=== PATIENT | female | born 1965 | race Caucasian/White ===

== ENCOUNTER 2020-09-10 05:53 | Day surgery (SDC) | payer OTHER ==
[~2020-09-10 05:53] MED LIST: BREO ELLIPTA 11 EACH INH; CHLORTHALIDONE25 MG PO; COZAAR100 MG PO; FLUTICASONE PRO16 GM; K-TAB ER20 MEQ PO; LEVOTHYROXINE75 MC1 PO; MELOXICAM15 MG PO; OMEPRAZOLE40 MG PO; ROSUVASTATIN CAL5 MG PO; TRAMADOL HCL50 MG PO; VENTOLIN HFA IN18 GM INH
[2020-09-10] MEDS ORDERED: ACETAMINOPHEN500 M1 PO (06:21)
[2020-09-10] MEDS ORDERED: SAM-E200 MG PO (06:23)
[2020-09-10] MEDS ORDERED: MAG-OXIDE 400M400 MG PO (06:24)
[2020-09-10] MEDS ORDERED: MSM1000 MG PO (06:24)
[2020-09-10] MEDS ORDERED: GLUCOSAMINE-CH1 EA14 PO (06:25)
[2020-09-10 07:56] LABS: BUN/CREAT RATIO (CALC) 34.8 RATIO; CREATININE 0.66 mg/dL (0.51-0.95); POTASSIUM 3.7 mmol/L (3.5-5.1)
[2020-09-10] MEDS ORDERED: XARELTO10 MG PO (13:08)
== END 2020-09-10 17:00 | disposition home or self-care (01) ==
LOC: FAS 05:53
PROVIDERS: Nurse Practitioner Adult Health
DX: M16.11 Unilateral primary osteoarthritis, right hip (principal); K21.9 Gastro-esophageal reflux disease without esophagitis; E03.9 Hypothyroidism, unspecified; J45.909 Unspecified asthma, uncomplicated; I10 Essential (primary) hypertension; E78.5 Hyperlipidemia, unspecified; M06.9 Rheumatoid arthritis, unspecified; F41.9 Anxiety disorder, unspecified; F32.9 Major depressive disorder, single episode, unspecified; Z87.891 Personal history of nicotine dependence; Z79.899 Other long term (current) drug therapy; Z88.1 Allergy status to other antibiotic agents; Z88.2 Allergy status to sulfonamides; Z88.5 Allergy status to narcotic agent; Z88.6 Allergy status to analgesic agent; Z91.048 Other nonmedicinal substance allergy status
CPT/HCPCS: 36415; 73501; 76000; 80048; 86850; 86900; 86901; 94010; 94762; 97116; 97162; 97166; 97530-GP; 97535; C1776; J0171; J0697; J1170; J1885; J2250; J2370; J2405; J2704; J2795; J3010; J7120; U0002